=== PATIENT | male | born 1990 ===

== ENCOUNTER 2019-12-07 13:50 | Emergency (ER) | payer OTHER ==
[~2019-12-07] VITALS: Ht 185.4 cm; Wt 108.9 kg
[2019-12-07 14:02] VITALS: Ht 185.4 cm; Wt 108.9 kg
[2019-12-07 14:19] VITALS: BP 118/55
== END 2019-12-07 14:19 | disposition home or self-care (01) ==
LOC: ED 13:50
DX: Z13.89 Encounter for screening for other disorder (principal); Z59.0 Homelessness
CPT/HCPCS: G0480; U0003-CS